=== PATIENT | male | born 1995 | race Caucasian/White ===

== ENCOUNTER 2018-01-27 20:12 | Emergency (ER) | payer BC, OTHER ==
[2018-01-27] MEDS: LIDOCAINE 1% MDV 20ML VIAL IM (21:30)
[2018-01-27] MEDS: AUGMENTIN 875 MG TAB PO (21:30)
[2018-01-27] MEDS: ADACEL/BOOSTRIX VACCINE (DIPHTH/PERTUSS/ACELL/TETANUS)0.5ML SYR (90715) IM (21:31)
== END 2018-01-27 22:29 | disposition home or self-care (01) ==
LOC: M ED 20:12
DX: S61.052A Open bite of left thumb without damage to nail, initial encounter (principal); W54.0XXA Bitten by dog, initial encounter; Y92.009 Unspecified place in unspecified non-institutional (private) residence as the place of occurrence of the external cause; Y93.89 Activity, other specified
CPT/HCPCS: 90715

== ENCOUNTER 2018-01-31 10:02 | Emergency (ER) | payer BC | END 2018-01-31 10:33 | disposition home or self-care (01) | LOC: M ED 10:02 | DX: Z48.01 Encounter for change or removal of surgical wound dressing (principal); F17.200 Nicotine dependence, unspecified, uncomplicated; Z79.899 Other long term (current) drug therapy | CPT/HCPCS: 99282 ==

== ENCOUNTER 2018-02-04 13:09 | Emergency (ER) | payer BC | END 2018-02-04 16:20 | disposition home or self-care (01) | LOC: M ED 13:09 | DX: Z48.02 Encounter for removal of sutures (principal); L08.9 Local infection of the skin and subcutaneous tissue, unspecified; Z77.098 Contact with and (suspected) exposure to other hazardous, chiefly nonmedicinal, chemicals | CPT/HCPCS: 87186 ==

== ENCOUNTER 2020-05-14 10:13 | Emergency (ER) | payer BC, OTHER ==
[~2020-05-14] VITALS: Ht 182.9 cm; Wt 100.0 kg
[~2020-05-14 10:13] MED LIST: AUGM875T28 PO; DOXY100C37 PO; IBUP80TA PO
--- OUTSIDE RECORDS SUMMARY | 2020-05-14 10:20 | CCD ---
Author Author [facility] Organization [facility] Address Unknown Phone Unavailable Support Name Relationship Address Phone MONICO Next Of Kin [address] [place] [address] FXCAPRARA* Next Of Kin [address] [place] [address] MOES Next Of Kin [address] [place] [address] ST Next Of Kin Unknown Unavailable AGUILERAKARLO Next Of Kin [address] [place] [address] HEATHER AGUILERA Next Of Kin [address] [place] [address] Re-disclosure Warning The records that you are about to access may contain information from federally-assisted alcohol or drug abuse programs. If such information is present, then the following federally mandated warning applies: This information has been disclosed to you from records protected by federal confidentiality rules (42 CFR part 2). The federal rules prohibit you from making any further disclosure of this information unless further disclosure is expressly permitted by the written consent of the person to whom it pertains or as otherwise permitted by 42 CFR part 2. A general authorization for the release of medical or other information is NOT sufficient for this purpose. The Federal rules restrict any use of the information to criminally investigate or prosecute any alcohol or drug abuse patient.The records that you are about to access may contain highly sensitive health information, the redisclosure of which is protected by Article 27-F of the [facility] Public Health law. If you continue you may have access to information: Regarding HIV / AIDS; Provided by facilities licensed or operated by the [facility] Office of Mental Health; or Provided by the [facility] Office for People With Developmental Disabilities. If such information is present, then the following [facility] mandated warning applies: This information has been disclosed to you from confidential records which are protected by state law. State law prohibits you from making any further disclosure of this information without the specific written consent of the person to whom it pertains, or as otherwise permitted by law. Any unauthorized further disclosure in violation of state law may result in a fine or longterm sentence or both. A general authorization for the release of medical or other information is NOT sufficient authorization for further disc losure. Insurance Providers Payer name Policy type / Coverage type Policy ID Covered democrat ID Covered democrat's relationship to castrejon Policy Castrejon Plan Information [facility] 302/307 [id number] SP [id number] [facility] [id number] SP [id number] [facility] 302/307 [id number] SP [id number] [facility] [id number] S [id number]
--- NOTE | 2020-05-14 11:04 | REP ---
INDICATION: patellar dislocation--spontaneous reduction. COMPARISON: Comparison left knee radiographs are from August 21, 2011.. TECHNIQUE: AP and lateral views. FINDINGS: Two views of the left knee demonstrate clothing artifact over the distal thigh. Bones, joints, and soft tissues are otherwise unremarkable.. No fracture or subluxation is seen. No opaque foreign body noted. IMPRESSION: Clothing artifact. Otherwise negative AP and lateral views of the left knee.. <Electronically signed by Lito Mathews > 05/14/20 1100
--- OUTSIDE RECORDS SUMMARY | 2020-05-14 11:10 | CCD ---
Author Author [facility] Organization [facility] Address Unknown Phone Unavailable Support Name Relationship Address Phone MONICO Next Of Kin [address] [address] FXCAPRARA* Next Of Kin [address] [place] [address] MOES Next Of Kin [address] [place] [address] ST Next Of Kin Unknown Unavailable ALEKARLO Next Of Kin [address] [place] [address] HEATHER AGUILERA Next Of Kin [address] [place] [address] Re-disclosure Warning The records that you are [...] is protected by Article 27-F of the [facility] Public Health law. If you continue you may have access to information: Regarding HIV / AIDS; Provided by facilities licensed or operated by the [facility] Office of Mental Health; or Provided by the [facility] Office for People With Developmental Disabilities. If such information is present, then the following [facility] mandated warning applies: This information has been [...] law may result in a fine or fpc sentence or both. A general authorization for the release of medical or other information is NOT sufficient authorization for further disc losure. Insurance Providers Payer name Policy type / Coverage type Policy ID Covered libertarian ID Covered libertarian's relationship to castrejon Policy Castrejon Plan Information [facility] [id number] SP [id number] [facility] 302/307 [id number] SP [id number] [facility] [id number] SP [id number] [facility] 302/307 [id number] SP [id number] [facility] [id number] S [id number]
[2020-05-14] MEDS ORDERED: HYDR-4571 PO (11:32)
[2020-05-14 11:50] VITALS: BP 137/69
== END 2020-05-14 11:55 | disposition home or self-care (01) ==
LOC: M ED 10:13
DX: S83.005A Unspecified dislocation of left patella, initial encounter (principal); X58.XXXA Exposure to other specified factors, initial encounter; Y92.89 Other specified places as the place of occurrence of the external cause; Y93.9 Activity, unspecified; Y99.0 Civilian activity done for income or pay

== ENCOUNTER 2021-04-20 11:53 | Emergency (ER) | payer OTHER ==
[~2021-04-20] VITALS: Ht 182.9 cm; Wt 115.9 kg
[~2021-04-20 11:53] MED LIST changes: +DOXY-443 PO; -DOXY100C37 PO; +HYDR-4571 PO
[2021-04-20] MEDS ORDERED: IBUP200C25 PO (12:22)
[2021-04-20] MEDS ORDERED: KETOROLAC 30 MG/ML 1ML VIAL IM ONE (17:20)
[2021-04-20] MEDS ORDERED: LIDOCAINE 5% (LIDODERM) PATCH TD ONE (17:20)
[2021-04-20] MEDS ORDERED: diazePAM 5MG TABLET PO ONE (17:20)
[2021-04-20] MEDS ORDERED: KETO10TAB PO (18:46)
[2021-04-20] MEDS ORDERED: METH-1165 PO (18:46)
[2021-04-20 19:26] VITALS: BP 141/79
[2021-04-20] MEDS ORDERED: **NOTE PATIENT COMMENT** MISC XX SCH (21:00)
== END 2021-04-20 19:28 | disposition home or self-care (01) ==
LOC: M ED 11:53
DX: S33.5XXA Sprain of ligaments of lumbar spine, initial encounter (principal); X50.0XXA Overexertion from strenuous movement or load, initial encounter; Y92.9 Unspecified place or not applicable; Y93.9 Activity, unspecified; Y99.0 Civilian activity done for income or pay
CPT/HCPCS: 72100; 96372; 99283; J1885

== ENCOUNTER 2021-04-27 13:29 | Emergency (ER) | payer OTHER ==
[~2021-04-27] VITALS: Ht 182.9 cm; Wt 115.9 kg
[~2021-04-27 13:29] MED LIST changes: +IBUP200C25 PO; +KETO10TAB PO; +METH-1165 PO
[2021-04-27] MEDS ORDERED: PRED20TA PO (17:01)
[2021-04-27] MEDS ORDERED: LIDO5DIS41 TD (17:01)
[2021-04-27 18:02] VITALS: BP 133/84
== END 2021-04-27 18:09 | disposition home or self-care (01) ==
LOC: M ED 13:29
DX: S33.5XXA Sprain of ligaments of lumbar spine, initial encounter (principal); X58.XXXA Exposure to other specified factors, initial encounter; Y92.9 Unspecified place or not applicable; Y93.89 Activity, other specified; Y99.9 Unspecified external cause status

== ENCOUNTER 2023-10-19 17:17 | Emergency (ER) | payer BC ==
[~2023-10-19] VITALS: Ht 182.9 cm; Wt 109.1 kg
[~2023-10-19 17:17] MED LIST changes: +DOXY-323 PO; -DOXY-443 PO; +LIDO5DIS41 TD; +PRED20TA PO
[2023-10-19 17:19] VITALS: BP 136/77; TEMP 97.8; O2SAT 97
== END 2023-10-19 21:14 | disposition home or self-care (01) ==
LOC: M ED 17:17
DX: J38.3 Other diseases of vocal cords (principal); F41.9 Anxiety disorder, unspecified; F17.290 Nicotine dependence, other tobacco product, uncomplicated

== ENCOUNTER → 2024-05-16 | Outpatient (RCR) | payer BC, OTHER ==
[~2024-05-16] MED LIST changes: -DOXY-323 PO; +DOXY-441 PO
== END ==
LOC: M ST 04-22 09:20
PROVIDERS: ATTEND Otolaryngology
DX: R49.0 Dysphonia (principal)

== ENCOUNTER 2024-05-23 14:19 | Outpatient (RCR) | payer OTHER | END 2024-06-13 | LOC: M ST 14:19 | PROVIDERS: ATTEND Otolaryngology | DX: R49.0 Dysphonia (principal) ==

== ENCOUNTER → 2024-07-09 | Outpatient (REF) | payer OTHER | LOC: M LAB REF 12:51 | PROVIDERS: ATTEND Physician Assistant | DX: B34.9 Viral infection, unspecified (principal) ==